=== PATIENT | female | born 1995 | race Caucasian/White ===

== ENCOUNTER 2016-07-31 20:23 | Emergency (ER) | payer BC, OTHER ==
[~2016-07-31] VITALS: Ht 157.5 cm; Wt 125.8 kg
[~2016-07-31 20:23] MED LIST: ALBUAER19 INH; BCPILLS PO; FLUT110A INH; RIZA10TA18 PO
[2016-07-31 20:33] VITALS: TEMP 36.7; Ht 157.5 cm; Wt 125.8 kg
[2016-07-31] MEDS ORDERED: SODIUM CHLORIDE 0.9% 1000ML 1,000 ML IV STA ×2 (21:33)
[2016-07-31] MEDS ORDERED: KETOROLAC TROMETHAMINE 30 MG/ML VIAL IV STA (21:33)
[2016-07-31] MEDS ORDERED: ONDANSETRON INJ 2 MG/ML 2 ML VIAL IV STA (21:33)
[2016-07-31 22:25] LABS: BASO % 0.3 %; BASO ABS # 0.03 K/uL (0-0.2); COMPLETE YES; EOS % 6.2 %; HEMATOCRIT 39.5 % (37-47); IG% 0.4 %; LYMPH % 33.9 %; LYMPH ABS # 3.19 K/uL (1.2-3.4); MEAN CELL VOLUME 83.9 fL (80-100); MEAN CORPUSCULAR HGB CONC 33.4 g/dl (32-36); MEAN PLATELET VOLUME 9.7 fL (7.4-10.4); MONO % 5.6 %; NEUT % 53.6 %; PLATELET COUNT 195 K/uL (130-400); RED BLOOD COUNT 4.71 M/uL (4.2-5.4)
[2016-07-31 22:29] LABS: URINE APPEARANCE CLOUDY (CLEAR); URINE BILIRUBIN NEG (NEG); URINE COLOR DK YELLOW; URINE EPITHELIAL CELL AUTO >30 /lpf (0-5); URINE NITRITE NEG (NEG); URINE SPECIFIC GRAVITY 1.034 (1.000-1.030); UROBILINOGEN NEG (NEG); ZZUR CULT IF INDIC CLEAN CATCH YES
[2016-07-31 22:32] LABS: MANUAL MICROSCOPIC REQUIRED? NO; REVIEW REQ? YES
[2016-07-31 22:39] LABS: BUN/CREATININE RATIO 14.5 (10-20); CREATININE 0.89 mg/dl (0.60-1.20); POTASSIUM 3.8 mmol/L (3.5-5.1)
[2016-08-01] MEDS ORDERED: DICL-201 PO (00:07)
[2016-08-01] MEDS ORDERED: TROLAMINE SALICYLATE 10% CRM 255 APPLN/85 GM TUBE EXT ONE (01:00)
[2016-08-01 01:20] VITALS: BP 93/61; PULSE 78; O2SAT 98
--- NOTE | 2016-08-01 05:18 | EMERGENCY ROOM VISIT NOTE ---
History First contact with patient: 21:24 Chief Complaint: FLANK PAIN Stated Complaint: FLANK PAIN,NAUSEA/VOMITING,PAINFUL URINATION,FEVER History of Present Illness The patient is a 21 year old female who presents to the Emergency Room with complaints of left flank pain for the past week described as aching, ranging in severity 7 out of 10 with nausea and vomiting with possible fever and urinary symptoms for the past 2 days. Patient saw her family care doctor yesterday and was advised to go the ER. [place] did a CT that was negative along with a urine. Patient then followed up today with a family care doctor and now came here. Patient denies chest pain, dyspnea, cough, congestion, abdominal pain, vaginal itching or discharge. No recent antibiotics. No recent UTI. Review of Systems See HPI for pertinent positives & negatives. A total of 10 systems reviewed and were otherwise negative. Past Medical/Surgical History Medical Problems: (1) Asthma (2) Bronchitis Social History Smoking Status: Never Smoker Alcohol Use: none Drug Use: none Marital Status: single Housing Status: lives with family Occupation Status: student Current/Historical Medications Scheduled Control Pills ( Control Pills), 1 TAB PO DAILY Diclofenac (Voltaren), 1 TAB PO BID Allergies Coded Allergies: Sulfa Drugs (Verified Allergy, Unknown, HIVES, 08/01/16) N&V Clarithromycin (Verified Adverse Reaction, Unknown, VOMITING, 08/01/16) Sulfamethoxazole w/Trimethoprim (Verified Adverse Reaction, Unknown, VOMITING, 08/01/16) Physical Exam Vital Signs Date Time Temp Pulse Resp B/P (MAP) Pulse Ox O2 Delivery O2 Flow Rate FiO2 08/01/16 01:20 78 18 93/61 98 Room Air 08/01/16 00:07 86 18 121/82 100 Room Air 07/31/16 22:53 82 18 125/68 98 Room Air 07/31/16 20:33 36.7 88 18 145/102 99 Room Air Pain Rating (0-10): 3.0 Physical Exam VITALS: Vitals are noted on the nurse's note and reviewed by myself. Vital signs stable. GENERAL: Pleasant female, in no acute distress, nondiaphoretic, well-developed well-nourished. SKIN: The skin was without rashes, erythema, edema, or bruising. There is no tenting of the skin. Capillary reflex less than 2 seconds. HEAD: Normocephalic atraumatic. EARS: External auditory canals clear, tympanic membranes pearly romo without erythema or effusion bilaterally. EYES: Pupils equal round and reactive to light and accommodation. Conjunctivae without injection, sclerae without icterus. Extraocular movements intact. NOSE: Patent, turbinates without inflammation or discharge. MOUTH: Mucous membranes moist. Pharynx without erythema or exudate. Uvula midline. Airway patent. Tongue does not deviate. NECK: Supple without nuchal rigidity. No lymphadenopathy. No thyromegaly. Cervical spine is nontender. No JVD. HEART: Regular rate and rhythm without murmurs gallops or rubs. LUNGS: Clear to auscultation bilaterally without wheezes, rales or rhonchi. No dullness to percussion. No retractions or accessory muscle use. ABDOMEN: Positive bowel sounds x 4. Normal tympanic percussion. Soft, nontender, without masses or organomegaly. Kang sign negative. No guarding or rebound tenderness. MUSCULOSKELETAL: No muscle atrophy, erythema, or edema noted. No thoracic or lumbar tenderness on exam. No CVA tenderness. Patient can ambulate without difficulties. NEURO: Patient was alert and oriented to person place and time. Normal sensation to light and sharp touch. No focal neurological deficits. Medical Decision & Procedures Laboratory Results 07/31/16 22:14 Red Blood Count 4.71, Mean Corpuscular Volume 83.9, Mean Corpuscular Hemoglobin 28.0, Mean Corpuscular Hemoglobin Concent 33.4, Mean Platelet Volume 9.7, Neutrophils (%) (Auto) 53.6, Lymphocytes (%) (Auto) 33.9, Monocytes (%) (Auto) 5.6, Eosinophils (%) (Auto) 6.2, Basophils (%) (Auto) 0.3, Neutrophils # (Auto) 5.03, Lymphocytes # (Auto) 3.19, Monocytes # (Auto) 0.53, Eosinophils # (Auto) 0.58, Basophils # (Auto) 0.03 07/31/16 22:14 Test 07/31/16 20:58 07/31/16 22:04 07/31/16 22:14 Urine Color DK YELLOW Urine Appearance CLOUDY (CLEAR) Urine pH 5.0 (4.5-7.5) Urine Specific [place] 1.034 (1.000-1.030) Urine Protein NEG (NEG) Urine Glucose (UA) NEG (NEG) Urine Ketones TRACE (NEG) Urine Occult Blood NEG (NEG) Urine Nitrite NEG (NEG) Urine Bilirubin NEG (NEG) Urine Urobilinogen NEG (NEG) Urine Leukocyte Esterase NEG (NEG) Urine WBC (Auto) 1-5 /hpf (0-5) Urine RBC (Auto) 0-4 /hpf (0-4) Urine Hyaline Casts (Auto) 1-5 /lpf (0-5) Urine Epithelial Cells (Auto) >30 /lpf (0-5) Urine Bacteria (Auto) 1+ (NEG) Urine Test NEG (NEG) Bedside Glucose 70 mg/dl (70-90) White Blood Count 9.40 K/uL (4.8-10.8) Red Blood Count 4.71 M/uL (4.2-5.4) Hemoglobin 13.2 g/dL (12.0-16.0) Hematocrit 39.5 % (37-47) Mean Corpuscular Volume 83.9 fL (80-100) Mean Corpuscular Hemoglobin 28.0 pg (25-34) Mean Corpuscular Hemoglobin Concent 33.4 g/dl (32-36) Platelet Count 195 K/uL (130-400) Mean Platelet Volume 9.7 fL (7.4-10.4) Neutrophils (%) (Auto) 53.6 % Lymphocytes (%) (Auto) 33.9 % Monocytes (%) (Auto) 5.6 % Eosinophils (%) (Auto) 6.2 % Basophils (%) (Auto) 0.3 % Neutrophils # (Auto) 5.03 K/uL (1.4-6.5) Lymphocytes # (Auto) 3.19 K/uL (1.2-3.4) Monocytes # (Auto) 0.53 K/uL (0.11-0.59) Eosinophils # (Auto) 0.58 K/uL (0-0.5) Basophils # (Auto) 0.03 K/uL (0-0.2) RDW Standard Deviation 40.5 fL (36.4-46.3) RDW Coefficient of Variation 13.3 % (11.5-14.5) Immature Granulocyte % (Auto) 0.4 % Immature Granulocyte # (Auto) 0.04 K/uL (0.00-0.02) Nucleated RBC Absolute Count (auto) 0.04 K/uL (0-0) Nucleated Red Blood Cells % 0.4 % Anion Gap 7.0 mmol/L (3-11) Est Creatinine Clear Calc Drug Dose 128.0 ml/min Estimated GFR () 108.1 Estimated GFR (Non- 93.3 BUN/Creatinine Ratio 14.5 (10-20) Calcium Level 9.0 mg/dl (8.5-10.1) Medications Administered Medications (Trade) Dose Ordered Sig/[place] Route Start Time Stop Time Status Last Admin Dose Admin Ketorolac Tromethamine (Toradol Inj) 30 mg NOW STAT IV 07/31/16 21:33 07/31/16 21:36 DC 07/31/16 22:46 30 MG Ondansetron HCl (Zofran Inj) 4 mg NOW STAT IV 07/31/16 21:33 07/31/16 21:36 DC 07/31/16 22:47 4 MG Sodium Chloride 1,000 ml @ 999 mls/hr Q1H1M STAT IV 07/31/16 21:33 07/31/16 22:33 DC 07/31/16 22:48 999 MLS/HR Sodium Chloride 1,000 ml @ 200 mls/hr Q5H STAT IV 07/31/16 21:33 08/01/16 01:57 DC 08/01/16 00:09 200 MLS/HR Trolamine Salicylate (Myoflex Cream) 1 appln NOW ONCE EXT 08/01/16 01:00 08/01/16 01:01 DC 08/01/16 01:21 1 APPLN ED Course Prior records/ancillary studies reviewed. Triage Nursing notes reviewed. Additional history obtained from family. The patient's history was concerning for flank pain. Differential diagnosis: Etiologies such as musculoskeletal, disc herniation, fracture, aortic disease, metastatic disease, cord compression, discitis, infection, renal colic, gastrointestinal, acute exacerbation of chronic back pain, sciatica, cauda equina, as well as others were entertained. Physical findings: As above. No focal neurologic findings noted. ER treatment provided: Toradol, Zofran, IV fluids On reassessment the patient felt better. Diagnostics interpreted by me: The labs revealed negative urine. Normal glucose. No leukocytosis Imaging studies: Ultrasound of the kidneys was reviewed and negative. I obtain the CT from [facility] and showed no kidney stones or hydronephrosis per radiology This appears to be consistent with flank pain most likely muscle skeletal nature. Patient had unremarkable workup today and also yesterday at [facility]. She is advised to follow-up with her family doctor or here in the ER sooner for back pain, fevers, vomiting, worsening signs or symptoms or as needed. Patient did not have an acute abdomen on exam. She is well-appearing.. The patient's physical examination and detailed history did not reveal any red flags for back pain such as those listed in the differential diagnosis. Therefore advanced diagnostics and consultations were felt to be unwarranted. By the evaluation outlined above emergent etiologies such as fracture, aortic disease, metastatic disease, infection, renal colic, gastrointestinal, cord compression, cauda equina, as well as others were deemed relatively unlikely. The pt informed about the findings as listed above. All questions were answered and pleased with the treatment. Return instructions were outlined and the patient was discharged in stable condition. Referral: The patient was referred back to primary care physician for follow-up in 2 to 3 days for a recheck of the current condition. Case reviewed by attending Medical Decision As above Impression Primary Impression: Left flank pain Departure Information Dispostion Home / Self-Care Condition GOOD Forms HOME CARE DOCUMENTATION FORM, Work Instructions, Return To Work: 2 days IMPORTANT VISIT INFORMATION Patient Instructions My [facility], ED Flank Pain Uncertain Cause Additional Instructions Ibuprofen(Motrin, Advil) may be used for fever or pain. Use 600mg every six hours as needed. Take with food. Avoid using more than 2400mg in a 24 hour period. Do not use 2400mg per day for more than three consecutive days without physician direction. Prolonged inappropriate use can lead to stomach upset or ulcers. This medication can be taken if you need to drive, work, or perform activities which may be dangerous when taking narcotic pain medication. (AND/OR) Acetaminophen(Tylenol) may be used for fever or pain. Use 1000mg every six hours as needed. Avoid using more than 3000mg in a 24 hour period. This medication can be taken if you need to drive, work, or perform activities which may be dangerous when taking narcotic pain medication. Rest and avoid heavy lifting until your symptoms resolve and then gradually return to full activity. A good rule of thumb is if it hurts your back to perform a certain activity, then it should be avoided until you are healthy again. A heating pad, warm compresses, or a hot shower may help with tight muscles and can be done several times a day as needed. Continue current medications. Return to the ER immediately for any numbness, tingling, severe pain, loss of control of your bowels or bladder, inability to walk, or as needed. Follow up with your primary care physician within 3-5 days for a recheck of your current condition. Work Instructions Return To Work: 2 days
--- NOTE | 2016-08-01 07:02 | DIAGNOSTIC IMAGING REPORT ---
EXAMINATION: RENAL ULTRASOUND CLINICAL HISTORY: Left flank pain COMPARISON STUDY: CT scan dated 05/11/2012 FINDINGS: The right kidney measures 9.4 cm. The left kidney measures 10.6 cm. There is no evidence of hydronephrosis. There are no renal masses. The bladder was decompressed the time of imaging. Neither ureteral jet was visualized. The spleen was minimally enlarged measuring 12.8 cm. IMPRESSION : 1. No renal masses identified. No evidence of hydronephrosis 2. 12.8 cm spleen Electronically signed by: Saroj Singh M.D. 08/01/2016 7:00 AM Dictated Date/Time: 08/01/2016 6:59 AM
== END 2016-08-01 01:19 | disposition home or self-care (01) ==
LOC: C.EDB 20:25 → C.EDA 08-01 01:19
DX: R10.30 Lower abdominal pain, unspecified (principal); J45.909 Unspecified asthma, uncomplicated; Z79.3 Long term (current) use of hormonal contraceptives; Z79.899 Other long term (current) drug therapy